=== PATIENT | male | born 1940 | race American Indian/Alaskan Native ===

== ENCOUNTER 2017-10-14 16:50 | Inpatient (IN) | payer OTHER, MEDICARE ==
[~2017-10-14] VITALS: Ht 193 cm; Wt 118.3 kg
[~2017-10-14 16:50] MED LIST: Aspirin EC81 MG PO; COMBIVENT RESPIM4 GM INH; Colace100 MG PO; GABA300 PO; HUMULIN 70100 UNIT/2 SC; Hytrin2 MG PO; METO25 PO; Metformin HCl1000 MG PO; OXYC10TA19 PO; POTCHL10ER PO; PRAV20 PO; PREG75
[2017-10-14 17:23] LABS: BASOPHILS ABSOLUTE AUTO 0.06 K/mm3 (0.00-0.23); BASOPHILS PERCENT AUTO 1 % (0-2); EOSINOPHILS ABSOLUTE AUTO 0.53 K/mm3 (0.00-0.68); EOSINOPHILS PERCENT AUTO 6 % (0-6); Hematocrit 37.3 % (37.0-53.0); Hemoglobin 12.2 g/dL (13.5-17.5); IMMATURE GRAN ABSOLUTE AUTO 0.07 K/mm3 (0.00-0.10); IMMATURE GRAN PERCENT AUTO 1 % (0-1); LYMPHOCYTES ABSOLUTE AUTO 1.29 K/mm3 (0.84-5.20); LYMPHOCYTES PERCENT AUTO 14 % (21-46); MONOCYTES ABSOLUTE AUTO 0.68 K/mm3 (0.16-1.47); MONOCYTES PERCENT AUTO 8 % (4-13); Mean Corpuscular HGB 31.4 pg (26.0-34.0); Mean Corpuscular HGB Conc 32.7 g/dL (31.5-36.5); Mean Corpuscular Volume 96 fL (80-100); Mean Platelet Volume 10.8 fL (9.1-12.4); NEUTROPHILS ABSOLUTE AUTO 6.42 K/mm3 (1.96-9.15); NEUTROPHILS PERCENT AUTO 71 % (41-73); Platelet Count 228 K/mm3 (150-400); RDW Coefficient Variation 15.3 % (11.7-14.2); RDW Standard Deviation 53.3 fL (35.1-46.3); Red Blood Cell Count 3.88 M/mm3 (4.30-5.90); White Blood Cell Count 9.05 K/mm3 (4.00-11.30)
[2017-10-14 17:40] LABS: Alanine Aminotransfer (ALT/SGP 28 U/L (12-78); Albumin, Blood 3.4 g/dL (3.4-5.0); Albumin/Globulin Ratio 0.8 (0.8-1.8); Alk Phos 111 U/L (50-136); Anion Gap 7 mmol/L (6-16); Aspartate Aminotrans (AST/SGOT 42 U/L (12-37); Bilirubin, Total 0.6 mg/dL (0.1-1.0); Blood Urea Nitrogen 27 mg/dL (8-24); Bun/Creatinine Ratio 16.1 (12.0-20.0); CO2, Blood 29 mmol/L (21-32); Calcium, Blood 8.9 mg/dL (8.5-10.1); Chloride, Blood 102 mmol/L (98-108); Creatinine, Blood 1.68 mg/dL (0.60-1.20); Globulin, Blood 4.3 g/dL (2.2-4.0); Glomerular Filtration Rate 42 (60-); Glucose, Blood 202 mg/dL (70-99); Potassium, Blood 4.6 mmol/L (3.5-5.5); Sodium, Blood 138 mmol/L (136-145); Total Protein, Blood 7.7 g/dL (6.4-8.2); Troponin I <0.015 ng/mL (0.000-0.040)
[2017-10-15 02:41] LABS: BASOPHILS ABSOLUTE AUTO 0.06 K/mm3 (0.00-0.23); BASOPHILS PERCENT AUTO 1 % (0-2); EOSINOPHILS ABSOLUTE AUTO 0.58 K/mm3 (0.00-0.68); EOSINOPHILS PERCENT AUTO 6 % (0-6); Hematocrit 35.1 % (37.0-53.0); Hemoglobin 11.7 g/dL (13.5-17.5); IMMATURE GRAN PERCENT AUTO 1 % (0-1); LYMPHOCYTES ABSOLUTE AUTO 1.63 K/mm3 (0.84-5.20); LYMPHOCYTES PERCENT AUTO 18 % (21-46); MONOCYTES ABSOLUTE AUTO 0.78 K/mm3 (0.16-1.47); MONOCYTES PERCENT AUTO 9 % (4-13); Mean Corpuscular HGB 31.2 pg (26.0-34.0); Mean Corpuscular HGB Conc 33.3 g/dL (31.5-36.5); Mean Corpuscular Volume 94 fL (80-100); Mean Platelet Volume 10.4 fL (9.1-12.4); NEUTROPHILS ABSOLUTE AUTO 5.92 K/mm3 (1.96-9.15); NEUTROPHILS PERCENT AUTO 65 % (41-73); Platelet Count 208 K/mm3 (150-400); RDW Coefficient Variation 15.1 % (11.7-14.2); RDW Standard Deviation 51.2 fL (35.1-46.3); Red Blood Cell Count 3.75 M/mm3 (4.30-5.90); White Blood Cell Count 9.07 K/mm3 (4.00-11.30)
[2017-10-15 03:05] LABS: Albumin, Blood 3.3 g/dL (3.4-5.0); Albumin/Globulin Ratio 0.9 (0.8-1.8); Bilirubin, Total 0.4 mg/dL (0.1-1.0); Bun/Creatinine Ratio 16.1 (12.0-20.0); Calcium, Blood 8.6 mg/dL (8.5-10.1); Creatinine, Blood 1.68 mg/dL (0.60-1.20); Globulin, Blood 3.5 g/dL (2.2-4.0); Potassium, Blood 3.8 mmol/L (3.5-5.5); Total Protein, Blood 6.8 g/dL (6.4-8.2)
--- NOTE | 2017-10-15 04:29 | NUR ---
SHIFT SUMMARY RECEIEVED REPORT FROM AMINTA GONZALEZ RN, AT 0138. THE PATIENT ARRIVED TO ROOM 354 AT 0151 VIA STRETCHER AND REQUIRED THE ASSIST OF THREE STAFF MEMBERS TO TRANSFER TO HOSPITAL BED. THE PATIENT'S BLE AND FEET APPEAR RED AND SWOLLEN; THE PATIENT STATES NUMBNESS AND TINGLING TO HIS EXTREMETIES RELATING TO PERIPHERAL NEUROPATHY. THE PATIENT HAS BEEN COOPERATIVE WITH STAFF AND ASSISTED WITH THE COMPLETION OF HIS ADMIT/H&P ASSESSMENT. CALL LIGHT EXPLAINED TO PATIENT AND WITHIN HIS REACH. IV ABX STARTED WITHOUT S/SX ADVERSE REACTIONS NOTED OR REPORTED. NO ACUTE CHANGES NOTED DURING THIS SHIFT. WILL CONTINUE TO MONITOR AND PROVIDE CARE NEEDED
--- NOTE | 2017-10-15 08:50 | NUR ---
Echocardiogram Completed
--- NOTE | 2017-10-15 08:57 | NUR ---
PATIENT IS RESTING IN BED AT THIS TIME. PATEINT IS ALERT AND ORIENTED. PATIENT USES THE URINAL AT BEDSIDE. PATIENT USES CALL LIGHT APPROPRAITELY.
--- NOTE | 2017-10-15 10:24 | NUR ---
PATIENT WAS AMBULATORY TO THE BATHROOM WITH FRONT WHEEL WALKER AND STAND BY ASSIST. PATIENT DID VERY WELL AND WAS NOT UNSTEADY AT ALL AND DID NOT NEED ASSISTANCE. RN WAS PRESENT AT TIME. HE WAS ABLE TO GET BACK INTO BED BY SELF.
--- NOTE | 2017-10-15 16:53 | NUR ---
SHIFT SUMMARY PT HAS BEEN A&O, NO ACUTE CHANGES, NO COMPLAINTS OF ANY KIND. PT IS XFERING W/ST BY ASSIST TO BATHROOM. PT IS BEDRESTING AT THIS TIME, WILL CONT TO MONITOR UNTIL REPORT GIVEN TO MIGUELINA CHANEY.
--- NOTE | 2017-10-15 17:58 | NUR ---
PATIENT WAS ASLEEP WHEN DINNER TRAY WAS BROUGHT INTO ROOM. TRIED WAKING PATIENT BUT WAS UNSUCESSFUL. TRAY WAS LEFT IN ROOM.
--- NOTE | 2017-10-16 01:32 | NUR ---
IV PRESENT UPON ASSESSMENT TO R CHRISTAL
[2017-10-16 05:58] LABS: Bun/Creatinine Ratio 16.5 (12.0-20.0); Calcium, Blood 8.9 mg/dL (8.5-10.1); Creatinine, Blood 1.82 mg/dL (0.60-1.20); Potassium, Blood 3.8 mmol/L (3.5-5.5)
--- NOTE | 2017-10-16 17:54 | NUR ---
SHIFT SUMMARY PT HAS HAD NO ACUTE CHANGES THIS SHIFT, NO COMPLAINTS OF ANY KIND. FAMILY VISITED FOR SEVERAL HOURS THIS SHIFT. PT HOPING TO DC TOMORROW. BEDRESTING AT THIS TIME, WILL CONT TO MONITOR UNTIL REPORT GIVEN TO MIGUELINA CHANEY.
--- NOTE | 2017-10-17 04:55 | NUR ---
SHIFT SUMMARY MEDICATED PAIN WITH SCHEDULED PAIN MED WITH GOOD RESULT. DENIES NAUSEA AND SOB. USED URINAL TO VOID. SLEPT WELL THROUGHOUT THE NIGHT. VS STABLE. PLAN IS FOR PT TO BE DC'D TODAY. WILL CONTINUE TO MONITOR AND GIVE REPORT TO ONCOMING RN.
[2017-10-17 05:07] LABS: Bun/Creatinine Ratio 17.4 (12.0-20.0); Calcium, Blood 8.7 mg/dL (8.5-10.1); Creatinine, Blood 2.01 mg/dL (0.60-1.20); Potassium, Blood 3.9 mmol/L (3.5-5.5)
[2017-10-17] MEDS ORDERED: GABA300 PO (14:49)
[2017-10-17] MEDS ORDERED: FURO20 PO (15:06)
[2017-10-17] MEDS ORDERED: Augmentin 875-1 EACH PO (15:07)
--- NOTE | 2017-10-17 16:02 | NUR ---
DISCHARGE SUMMARY PT DISCHARGED HOME WITH HOME HEALTH. PT LEFT ROOM VIA WHEELCHAIR AND CLOSING COORDINATOR ESCORT AT 1555. PT EDUCATED ABOUT MEDICATIONS, INSTRUCTED TO MACHINE CLOTH MEASURER MEDICATIONS AT IN, EDUCATED ON CELLULITIS, PT INSTUCTED TO FOLLOW UP WITH HIS WHITE TEAM DOCTOR AND HOME HEALTH. PT GIVEN INFORMATION ABOUT MEALS ON WHEELS. IV DC'D, BELONGINGS RETURNED
== END 2017-10-17 15:55 | disposition home health service (06) | DRG 603 ==
LOC: ER 16:50 → MEDS 10-15 01:18 → ER 10-15 01:18 → MEDS 10-15 01:51 → ENPENDDIS 10-17 14:00 → MEDS 10-17 15:55
PROVIDERS: Family Medicine; Physician Assistant Medical; ADMIT Internal Medicine
DX: L03.116 Cellulitis of left lower limb (principal); E11.22 Type 2 diabetes mellitus with diabetic chronic kidney disease; E11.40 Type 2 diabetes mellitus with diabetic neuropathy, unspecified; L03.115 Cellulitis of right lower limb; G89.29 Other chronic pain; M54.9 Dorsalgia, unspecified; I89.0 Lymphedema, not elsewhere classified; I12.9 Hypertensive chronic kidney disease with stage 1 through stage 4 chronic kidney disease, or unspecified chronic kidney disease; N18.3 Chronic kidney disease, stage 3 (moderate); F17.210 Nicotine dependence, cigarettes, uncomplicated; E78.5 Hyperlipidemia, unspecified; R53.1 Weakness; Z79.82 Long term (current) use of aspirin; Z79.899 Other long term (current) drug therapy; Z79.4 Long term (current) use of insulin; Z79.84 Long term (current) use of oral hypoglycemic drugs; Z88.2 Allergy status to sulfonamides
CPT/HCPCS: 36415; 71020; 76770; 80048; 80053; 82947; 83880; 84145; 84484; 85025; 93005; 93010; 93306; 93970; 94640; 94760; 97161; 97165; 97530; 97535; 99285; G8978; G8979; G8980; G8987; G8988; G8989; J0690; J1650; J1815; J1940; J7050